=== PATIENT | female | born 1990 ===

== ENCOUNTER 2018-05-10 16:06 | Emergency (ER) | payer OTHER ==
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
--- NOTE | 2018-05-10 17:16 | RAD ---
INDICATION: Head injury. COMPARISON: There are no relevant prior studies available for comparison. TECHNIQUE: Contiguous axial sections of the brain were obtained from the skull base to the vertex without contrast. FINDINGS: The ventricles, cisterns and sulci are within normal limits. No significant focal abnormality or mass effect is seen. There is no evidence for hemorrhage. No significant focal osseous abnormality is seen. The visualized portion of the paranasal sinuses and mastoid air cells appear clear. IMPRESSION: NO EVIDENCE FOR ACUTE INTRACRANIAL ABNORMALITY.
[2018-05-10] MEDS ORDERED: Cyclobenzaprine TAB* 10 MG PO ONE (17:40)
== END 2018-05-10 18:03 | disposition home or self-care (01) ==
LOC: UCEAST 16:06
DX: S16.1XXA Strain of muscle, fascia and tendon at neck level, initial encounter (principal); S09.90XA Unspecified injury of head, initial encounter; M40.40 Postural lordosis, site unspecified; V89.2XXA Person injured in unspecified motor-vehicle accident, traffic, initial encounter; Y92.9 Unspecified place or not applicable
CPT/HCPCS: 70450; 72125; 99203; A9270-GY; G0463